=== PATIENT | female | born 1990 | race Caucasian/White ===

== ENCOUNTER → 2018-08-26 | Outpatient (REF) ==
[~2018-08-26] MED LIST: ACE500 PO; BACL50AM IT; CARB-83 PO; LEVO1TAB30 PO
== END ==
LOC: ZZSLMC 12:00
PROVIDERS: ATTEND Surgery
DX: K29.50 Unspecified chronic gastritis without bleeding (principal); B96.81 Helicobacter pylori [H. pylori] as the cause of diseases classified elsewhere
CPT/HCPCS: 88305; 88344